=== PATIENT | female | born 1940 | race Caucasian/White ===

== ENCOUNTER → 2016-07-24 | Outpatient (CLI) | payer OTHER, MEDICARE ==
--- NOTE | 2016-07-24 15:45 | MA ---
Screening Digital Mammogram Clinical Indications: Routine screening. Personal history of right breast cancer. Technique: Standard cephalocaudal and mediolateral oblique projections are obtained. This examinati on is processed by the [employer] computer aided detection system. Comparison: June 2015, April 2014, April 2013 , April 2012 and March 2010 Breast density: B; There are scattered fibroglandular densities. Findings: CAD was reviewed. Small cluster of microcalcifications outer left breast, possibly vascular . The remainder of the left and right breast are stable. Impression: Developing microcalcifications outer left breast. Recommendation: Magnification view. If persistent, and not vascular, then attempt to localize in the orthogonal plane mammographically.. BI-RADS 0. Additional imaging of the left breast with diagnostic magnification mammography. [facility] will send a result letter to the patient. Negative mammography should not preclude additional workup of a clinically suspicious finding. The patient's information is entered into a reminder system with a target due date for her next mammo gram.
== END ==
LOC: FIMAGING 11:44
DX: Z12.31 Encounter for screening mammogram for malignant neoplasm of breast (principal); Z85.3 Personal history of malignant neoplasm of breast
CPT/HCPCS: G0202

== ENCOUNTER 2016-07-26 10:05 | Day surgery (SDC) | payer OTHER, MEDICARE ==
[2016-07-26] MEDS ORDERED: NS 500 ML IV ONE (10:09)
[2016-07-26] MEDS ORDERED: MIDAZOLAM 2 MG/2 ML VIAL IVP ONE (10:09)
[2016-07-26] MEDS ORDERED: fentaNYL 100 MCG/2 ML INJ IVP ONE (10:09)
[2016-07-26] MEDS ORDERED: PROPOFOL 200 MG/20 ML VIAL IVP ONE (10:09)
--- NOTE | 2016-07-26 10:31 | CPEKG ---
Heart Rate: 107 RR Interval: 561 QRSD Interval: 106 QT Interval: 368 QTC Interval: 491 QRS [place]: -62 T Wave [place]: 103 EKG Severity - ABNORMAL ECG - EKG Impression: ATRIAL FIBRILLATION EKG Impression: PAIRED VENTRICULAR PREMATURE COMPLEXES EKG Impression: LEFT ANTERIOR FASCICULAR BLOCK EKG Impression: NONSPECIFIC T ABNORMALITIES, ANT-LAT LEADS EKG Impression: BORDERLINE PROLONGED QT INTERVAL Electronically Signed By: Naga Castillo 26-Jul-2016 19:30:17
[2016-07-26 11:05] LABS: INR 1.41 (0.83-1.16); PROTIME(PATIENT) 17.2 SEC (12.0-15.0)
[2016-07-26 11:06] LABS: APTT 51.2 SEC (23.0-38.0)
[2016-07-26 11:31] LABS: ANION GAP 10 mEq/L (8-16); CALCIUM 8.6 mg/dL (8.5-10.4); CARBON DIOXIDE 24 mEq/l (22-31); CHLORIDE 108 mEq/L (97-110); GLOMERULAR FILTRATION RATE 54; GLUCOSE 92 mg/dL (70-100); MAGNESIUM 2.1 mg/dL (1.6-2.3); POTASSIUM 3.7 mEq/L (3.5-5.2); SODIUM 142 mEq/L (134-144)
--- NOTE | 2016-07-26 13:40 | CPEKG ---
Heart Rate: 62 RR Interval: 968 P-R Interval: 164 QRSD Interval: 108 QT Interval: 472 QTC Interval: 480 P [place]: 64 QRS [place]: -63 T Wave [place]: 94 EKG Severity - ABNORMAL ECG - EKG Impression: SINUS RHYTHM EKG Impression: LEFT ANTERIOR FASICULAR BLCOK Electronically Signed By: Naga Castillo 26-Jul-2016 19:31:27
--- NOTE | 2016-07-26 19:51 | CPIP ---
[f rep st] INVASIVE CARDIAC PROCEDURE DATE OF PROCEDURE: 07/26/2016 PROCEDURE: Transesophageal echocardiography-guided cardioversion. INDICATIONS: Symptomatic atrial fibrillation. COMPLICATIONS: None. DESCRIPTION OF PROCEDURE: NPO status was confirmed, informed consent obtained, and time-out performe d. We elected to proceed with SANDEEP prior to the cardioversion, as the patient was not 100% sure that she had taken all of her Pradaxa doses as prescribed. Sedation was provided by the Anesthesia servic e. The SANDEEP probe was passed without difficulty and images obtained. In summary, there was no eviden ce of intracardiac thrombus. She does have normal LV systolic function. Mild mitral regurgitation. Moderate tricuspid regurgitation. The patient received a single 200 joule synchronized shock which converted her from atrial fibrillati on to normal sinus rhythm. A 12-lead EKG is pending. CONCLUSIONS: 1. Successful transesophageal echocardiography-guided cardioversion. 2. Continue Pradaxa. 3. We did discuss the possibility of increasing the patient's usual amiodarone dose, but she would l ashley to discuss this further with Dr. Valentino. 4. Follow up with Dr. Valentino in 1-2 weeks. 5. Results discussed with the patient's . 6. Patient currently in stable condition. /[id number]/MODL
--- NOTE | 2016-08-26 10:42 | ECHO ---
[id number] + + [address] : : [place] [address] : : [phone] + Transesophageal Echocardiographic Report + ---+ :Name: ANJELICA SAXENA RStudy Date: 07/26/2016 11:40 AM : : Hospital Admission Number: [id number] Location: [facility]: :: 1940 Gender: Female : :Age: 75 yrs Race: WH : :Reason For Study: Pre-cardioversion : + ---+ Doppler Measurements \T\ Calculations MV dec time: 0.16 sec MV V2 max: 111.6 cm/sec MV max P.0 mmHg MV V2 mean: 66.7 cm/sec MV mean P.1 mmHg MV V2 VTI: 20.0 cm Left Ventricle The left ventricle is normal in size. Left ventricular systolic function is normal. Atria No thrombus is detected in the left atrial appendage. Mitral Valve There is moderate mitral annular calcification. There is no mitral valve stenosis. There is mild mitral regurgitation. Tricuspid Valve The tricuspid valve is normal in structure and function. There is moderate tricuspid regurgitation. Aortic Valve The aortic valve is trileaflet. There is mild to moderate aortic valve calcification. Mild aortic regurgitation. Pulmonic Valve The pulmonic valve is not well visualized. Pericardium There is no pericardial effusion. Conclusion A 2D transesophageal echocardiogram with color flow Doppler was performed. NPO status was confirmed, informed consent obatined, and timeout performed. Sedation was provided by the anesthesia department. SANDEEP probe was passed without difficulty. No complications. Left ventricular systolic function is normal. No thrombus is detected in the left atrial appendage. There is moderate mitral annular calcification. There is mild mitral regurgitation. Mild aortic regurgitation. There is mild to moderate aortic valve calcification. There is moderate tricuspid regurgitation. There is no pericardial effusion. Final Reading Physician: Dr Ny Quiroga electronically signed on 08/26/2016 10:41 AM Ordering Physician: Ny Quiroga Performed By: Dr Ny Quiroga
== END 2016-07-26 15:00 | disposition home or self-care (01) ==
LOC: FCATH 10:05
PROVIDERS: ATTEND Internal Medicine Cardiovascular Disease
DX: I48.0 Paroxysmal atrial fibrillation (principal); I10 Essential (primary) hypertension; I34.0 Nonrheumatic mitral (valve) insufficiency
CPT/HCPCS: J2704

== ENCOUNTER → 2016-07-29 | Outpatient (CLI) | payer OTHER, MEDICARE ==
--- NOTE | 2016-07-29 17:12 | DX ---
DEXA Bone Mineral Densitometry Indication: 75-year-old postmenopausal woman with history of normal bone mineralization. The patien t has a history of thyroid dysfunction and currently takes Synthroid, supplemental vitamin D, and mul tivitamins. Technique: Bone Mineral Densitometry (BMD) by Dual Energy X-Ray Absorptiometry (DEXA) was performed utilizing the [employer] scanner. The lumbar spine was evaluated in the AP projection. The bilat eral hips and left forearm were evaluated in the AP projection. Vertebral fracture assessment was al so performed. Comparison: June 27, 2011. AP Lumbar Spine: The L1, L2, L3, and L4 vertebral bodies were evaluated. BMD: 1.319 gm/cm2. T-score: 1 SD. Z-score: 1.9 SD. Decreased density. AP Left Hip: Total BMD: 1.126 gm/cm2. T-score: 0.9 SD. Z-score: 2.1 SD. Decreased density. AP Right Hip: Total BMD: 1.110 gm/cm2. T-score: 0.8 SD. Z-score: 2 SD. Decreased density. AP Left Forearm, 07/02: BMD: 0.824 gm/cm2. T-score: -0.6 SD. Z-score: 1.8 SD. Decreased density. Vertebral Fracture Assessment: No significant fracture deformity. No prevertebral aortic calcifica tion, significant marginal bone spurring, facet arthrosis, or intrinsic vertebral body sclerosis that would affect the accuracy of the lumbar spine BMD measurement. Conclusion: Normal bone mineral density despite decreased mineralization of the lumbar spine, bilate ral hips, and forearm since 2010. The ten year risk for any major osteoporotic fracture 7.4% and for a hip fracture is 0.6%. To prevent osteoporosis and to promote the patient's bone density, the following recommendations shou ld be considered: 1. Pursue a regular regimen of weightbearing and muscle-strengthening exercises in order to reduce t he risk of falls and fractures (as tolerated by the patient's general medical condition). 2. Ensure that daily dietary calcium uptake is maximized. 3. Ensure that intake of vitamin D is 400 to 800 international units. 4. Consider follow up DEXA scan in two years to assess the rate of bone loss in this patient. E:hamilton
== END ==
LOC: FIMAGING 14:31
PROVIDERS: ATTEND Internal Medicine Hematology & Oncology
DX: Z13.820 Encounter for screening for osteoporosis (principal); Z78.0 Asymptomatic menopausal state

== ENCOUNTER → 2016-07-31 | Outpatient (CLI) | payer OTHER, MEDICARE ==
--- NOTE | 2016-07-31 13:19 | MA ---
Diagnostic Digital Left Mammogram History: Developing microcalcifications outer left breast. Comparison: Screening mammogram July 24, 2016. Technique: A true lateral view and 2 mag views of calcifications in the left breast. Density: B Findings: The calcifications are consistent with atherosclerotic vascular calcifications. No further imaging workup is required. Impression: Benign vascular calcification.. BI-RADS 2. Benign. Recommendation: Return to screening mammography of both breasts in 1 year Results and recommendation were communicated to the patient at the time of the examination.
== END ==
LOC: FIMAGING 12:39
PROVIDERS: ATTEND Internal Medicine Hematology & Oncology
DX: R92.8 Other abnormal and inconclusive findings on diagnostic imaging of breast (principal)
CPT/HCPCS: G0206

== ENCOUNTER → 2017-01-28 | Outpatient (CLI) | payer OTHER, MEDICARE | LOC: FIMAGING 13:44 | PROVIDERS: ATTEND Internal Medicine Cardiovascular Disease | DX: J44.9 Chronic obstructive pulmonary disease, unspecified (principal) ==

== ENCOUNTER 2017-04-17 11:28 | Emergency (ER) | payer OTHER, MEDICARE ==
--- NOTE | 2017-04-17 11:41 | CPEKG ---
Heart Rate: 62 RR Interval: 968 P-R Interval: 172 QRSD Interval: 112 QT Interval: 468 QTC Interval: 476 P [place]: 66 QRS [place]: -58 T Wave [place]: 87 EKG Severity - ABNORMAL ECG - EKG Impression: SINUS RHYTHM EKG Impression: VENTRICULAR PREMATURE COMPLEX EKG Impression: LEFT ANTERIOR FASCICULAR BLOCK EKG Impression: Subtle ST depression - lat. leads. Electronically Signed By: Angel Perdomo 17-Apr-2017 12:25:50
[2017-04-17 11:44] VITALS: RESP 20; TEMP 98
[2017-04-17] MEDS ORDERED: ASPIRIN 81 MG CHEWABLE TAB PO ONE (11:55)
[2017-04-17 12:11] LABS: % IMMATURE GRANULYOCYTES 0.2 % (0.0-1.1); ABSOLUTE IMMATURE GRANULOCYTES 0.01 10^3/uL (0.00-0.10); ADD DIFF? NO; ADD MORPH? NO; ADD SCAN? NO; ATYPICAL LYMPHOCYTE FLAG 0 (0-99); FRAGMENT RBC FLAG 0 (0-99); LEFT SHIFT FLG 0 (0-99); LIPEMIA HEMOLYSIS FLAG 80 (0-99); MEAN CELL HEMOGLOBIN 29.1 pg (27.9-34.1); MEAN CELL HEMOGLOBIN CONCENTR. 33.3 g/dL (32.4-36.7); MEAN CELL VOLUME 87.3 fL (81.5-99.8); PLATELET CLUMPS FLAG 0 (0-99); PLATELET COUNT 279 10^3/uL (150-400); RED BLOOD CELL COUNT 4.81 10^6/uL (4.18-5.33); RED CELL DISTRIBUTION WIDTH 14.7 % (11.5-15.2)
--- NOTE | 2017-04-17 12:21 | EDPHY ---
H & P Stated Complaint: c/o rapid irr hr last pm into this am with slugish feeling for several days Time Seen by Provider: 04/17/17 11:32 HPI/ROS: This pt. arrives from Dr. Abdul' [facility] cardiology office after c/o heart palpitations last night associated with fleeting chest tightness and subtle difference in her current ECG from a previous ECG. Dr. Abdul sent her downstairs to our ED for further w/u. The patient describes occasional gallop to her heartbeat last night that felt different than her atrial fibrillation. Concerned that she might have to have conversion for perceived dysrhythmia she was unable to sleep from a.m. to 5:00 a.m. and finally slept few hours this morning prior to seeing Dr. Abdul. She also reports skipping her morning medications and skipping breakfast thinking that she might need to be NPO for a cardioversion. She reports that the chest tightness was fleeting lasting a less than a 2nd or 2 and she has had no chest pain since that time. She does have fatigue recently and has for months. Due to this fatigue she is currently scheduled to have an outpatient nuclear stress test with Dr. Valentino next week. She notes no other associated symptoms with the episode last night or this morning. ROS: Constitutional: No fevers or chills. Fatigue as per HPI HEENT: No complaints Pulmonary: She has chronic mild dyspnea that is unchanged. No coughing. Cardiovascular: The fleeting chest pain around 1:00 a.m. last night with none since. No lower extremity swelling. Endocrine: No diaphoresis Integumentary: No pallor. No skin rash. GI: Nausea or vomiting Neuro: No focal numbness tingling weakness. No headache. Complete review of symptoms is otherwise negative. Source: Patient Exam Limitations: No limitations - Personal History Current Tetanus Diphtheria and Acellular Pertussis (TDAP): Yes - Medical/Surgical History PMH: Atrial fibrillation Hypertension Hx Asthma: Yes Hx Diabetes: No Hx Cardiac Disease: Yes Other PMH: carpal tunnel surgery. hernia in back repair. Breast ca/radiation - Family History Significant Family History: No pertinent family hx - Social History Smoking Status: Former smoker Alcohol Use: None Drug Use: None Additional Social History: Patient lives with her but he is currently out of town having left 3 days prior to this visit with plan to return in 3 days - Physical Exam Exam: General Appearance: Alert, no distress. Eyes: Pupils equal and round no pallor or injection. ENT, Mouth: Mucous membranes moist. Respiratory: There are no retractions, lungs are clear to auscultation. Cardiovascular: Regular rate and rhythm. Gastrointestinal: Abdomen is soft and nontender, no masses, bowel sounds normal. Neurological: GCS 15 without deficits. Skin: Warm and dry, no rashes. Musculoskeletal: Neck is supple nontender. Extremities are symmetrical, full range of motion. Psychiatric: Mood and affect normal DIFFERENTIAL DIAGNOSIS: After history and physical exam differential diagnosis was considered for PVCs, paroxysmal AFib, myocardial ischemia or infarct, anxiety, GERD Constitutional: Initial Vital Signs Temperature (C) 36.6 C 04/17/17 11:40 Heart Rate 64 04/17/17 11:40 Respiratory Rate 20 04/17/17 11:40 Blood Pressure 157/110 H 04/17/17 11:40 O2 Sat (%) 98 04/17/17 11:40 O2 Delivery Mode Room Air Allergies/Adverse Reactions: Penicillins Allergy (Intermediate, Verified 12/31/14 11:09) Rash dronedarone HCl [From Multaq] Allergy (Unknown, Verified 12/31/14 11:09) Home Medications: Medication Instructions Recorded Amiodarone HCl [Pacerone] 12/31/14 Anastrozole [Arimidex 1 mg (*)] 12/31/14 CALCIUM CARBONATE [CALCIUM] 12/31/14 Cyanocobalamin (Vitamin B-12) 12/31/14 [Vitamin B-12] Dabigatran Etexilate Mesyl 12/31/14 [Pradaxa 150 MG (RX)] Fluorouracil 12/31/14 Gentamicin 0.3% [Gentak 0.3% Opht 5 ml OP Q6H #1 opht.btl 12/31/14 Drops] Glucosam/Chondr/Collagn/Hyalur 12/31/14 [Glucosamine & Chondroitin Cap] Letrozole [Femara 2.5 mg (*)] 12/31/14 Levothyroxine [Synthroid 100 mcg 12/31/14 (RX)] Metoprolol Succinate 12/31/14 Vinson-3 Fatty Acids [Fish Oil] 12/31/14 POTASSIUM Cl 10 MEQ (PREMIX) 12/31/14 Triamterene/Hydrochlorothiazid 12/31/14 [Triamterene-Hctz 37.5-25 mg Cp] amLODIPine BESYLATE [Norvasc 10 mg 12/31/14 (RX)] Medical Decision Making - Diagnostics EKG Interpretation: I reviewed the EKG from Dr. Abdul office-sinus rhythm with minimal lateral ST depression Our EKG performed at 11:39 a.m.-indication chest tightness palpitations reveals sinus rhythm at 62 Patient has less than a mm of ST depression in the lateral leads V for 3 V6. There is 1 PVC Overall assessment: sinus rhythm 1 PVC left anterior fascicular block, lateral ST depression-subtle cannot rule out ischemia ED Course/Re-evaluation: The IV is placed Aspirin p. o. Patient remained asymptomatic while here Her troponin is normal other labs are also normal. I spoke with Dr. Abdul the- plant etiologist regarding patient's lab results, EKG and clinical status. He was feel this patient is safe for discharge home with outpatient stress testing. The patient is also comfortable with this plan and feels reassured. Discussion: Patient occasional PVCs while here and I think that she felt the PVCs making her anxious and prompting her visit for further workup. She is not in AFib here. No pump but troponin despite hours after onset of symptoms and no chest pain here. This chest pain she described was fleeting lasting less than minutes. I do not think she is having coronary syndrome. However, the patient understands need to return emergency department should she have any significant recurrence of symptoms or other concerns. - Data Points Laboratory Results: Laboratory Results 04/17/17 12:00 04/17/17 12:00 Medications Given: Discontinued Medications Aspirin (Aspirin) 324 mg PO EDNOW ONE Stop: 04/17/17 11:56 Last Admin: 04/17/17 12:03 Dose: 324 mg Departure - Departure Disposition: Home, Routine, Self-Care Clinical Impression: Heart palpitations, Fatigue Condition: Good Instructions: Palpitations (ED) Additional Instructions: Diagnoses:. Heart palpitations 2. Fatigue Plan: Avoid excessive chocolate in the day. Drink plenty fluids Continue current medications When you get home, take your morning medications that he did not take initially. Follow up with Dr. Valentino for outpatient stress test. Return emergency department if he developed chest pain the last more than a few seconds, shortness of breath or other concerns Referrals: Nina Calvo MD [Primary Care Provider] - As per Instructions
[2017-04-17 12:25] VITALS: BP 167/90; PULSE 60; O2SAT 95
[2017-04-17 12:32] LABS: CARBON DIOXIDE 26 mEq/l (22-31)
[2017-04-17 12:42] LABS: ANION GAP 10 mEq/L (8-16); CALCIUM 8.9 mg/dL (8.5-10.4); CHLORIDE 106 mEq/L (97-110); CREATININE 0.9 mg/dL (0.6-1.0); GLOMERULAR FILTRATION RATE > 60; GLUCOSE 86 mg/dL (70-100); POTASSIUM 3.9 mEq/L (3.5-5.2); SODIUM 142 mEq/L (134-144)
[2017-04-17 12:44] LABS: TROPONIN I < 0.012 ng/mL (0.000-0.034)
== END 2017-04-17 13:11 | disposition home or self-care (01) ==
LOC: CED 11:28
DX: R00.2 Palpitations (principal); R53.83 Other fatigue; J45.909 Unspecified asthma, uncomplicated; I10 Essential (primary) hypertension; Z87.891 Personal history of nicotine dependence
CPT/HCPCS: 80048-PO; 84484-PO; 85025-PO

== ENCOUNTER → 2017-04-29 | Outpatient (CLI) | payer OTHER, MEDICARE | LOC: BHFA 13:00 | PROVIDERS: ATTEND Internal Medicine Cardiovascular Disease | DX: I48.91 Unspecified atrial fibrillation (principal); R00.2 Palpitations | CPT/HCPCS: 78452; 93017; A9500; J2785 ==

== ENCOUNTER → 2017-07-25 | Outpatient (CLI) | payer OTHER, MEDICARE | LOC: FIMAGING 12:26 | PROVIDERS: ATTEND Internal Medicine Hematology & Oncology | DX: Z12.31 Encounter for screening mammogram for malignant neoplasm of breast (principal); Z85.3 Personal history of malignant neoplasm of breast ==

== ENCOUNTER → 2018-01-15 | Outpatient (CLI) | payer OTHER | LOC: BHFA 10:30 | PROVIDERS: ATTEND Internal Medicine Cardiovascular Disease | DX: I48.91 Unspecified atrial fibrillation (principal); R01.1 Cardiac murmur, unspecified ==

== ENCOUNTER → 2018-09-24 | Outpatient (CLI) | payer OTHER, MEDICARE | LOC: FIMAGING 15:12 | PROVIDERS: ATTEND Internal Medicine Hematology & Oncology | DX: Z12.31 Encounter for screening mammogram for malignant neoplasm of breast (principal); Z85.3 Personal history of malignant neoplasm of breast ==